=== PATIENT | female | born 1945 | race Caucasian/White ===

== ENCOUNTER 2018-10-10 14:43 | Outpatient (REF) | payer MEDICARE, SELFPAY ==
[2018-10-10 19:05] LABS: ALT 109 U/L (12-78); AST 114 U/L (15-37); Albumin 3.5 g/dL (3.4-5.0); Alkaline Phosphatase 178 U/L (46-116); Bilirubin, Direct 0.11 mg/dL (0.00-0.20); Bilirubin, Total 0.3 mg/dL (0.2-1.0); Total Protein 8.7 g/dL (6.4-8.2)
== END 2018-10-10 15:03 ==
LOC: NCHCN 14:43
PROVIDERS: PCP Internal Medicine; Visit Provider Nurse Practitioner Family
DX: K74.3 Primary biliary cirrhosis (principal)
CPT/HCPCS: 80076

== ENCOUNTER 2020-02-14 12:48 | Outpatient (REF) | payer MEDICARE, SELFPAY ==
[2020-02-14 21:52] LABS: ALT 91 U/L (14-59); AST 68 U/L (15-37); Albumin 3.7 g/dL (3.4-5.0); Alkaline Phosphatase 155 U/L (46-116); Anion Gap 9.4 mmol/L (3-11); BUN 21 mg/dL (7-18); Bilirubin, Direct 0.11 mg/dL (0.00-0.20); Bilirubin, Total 0.4 mg/dL (0.2-1.0); CO2 25.6 mmol/L (21.0-32.0); CREATININE 0.96 mg/dL (0.55-1.02); Calcium 9.5 mg/dL (8.5-10.1); Calculated LDL 149 mg/dL (<100); Chloride 106 mmol/L (98-107); Cholesterol 209 mg/dL (<200); Estimated GFR 56.81 (mL/min/1.73m2); Glucose 89 mg/dL (74-106); HDL Cholesterol 50 mg/dL (40-60); Sodium 141 mmol/L (136-145); Total Protein 8.6 g/dL (6.4-8.2); Triglyceride 54 mg/dL (<150)
== END 2020-02-14 13:08 ==
LOC: NCHCN 12:48
PROVIDERS: PCP Internal Medicine; Visit Provider Nurse Practitioner Family
DX: I10 Essential (primary) hypertension (principal); E78.5 Hyperlipidemia, unspecified; E03.9 Hypothyroidism, unspecified
CPT/HCPCS: 80048; 80061; 80076; 84443

== ENCOUNTER 2020-12-18 16:11 | Outpatient (REF) | payer MEDICARE, SELFPAY ==
[2020-12-18 20:24] LABS: HCT 36.3 % (36.0-46.0); HGB 12.2 g/dL (11.2-15.7); MCH 30.7 pg (27.0-33.0); MCHC 33.6 % (32.0-36.0); MCV 91.2 fL (80-95); Platelet Count 162 10^3/uL (130-400); RBC 3.98 10^6/uL (3.93-5.22); RDW 14.6 % (11.7-14.6); RDW-SD 49.1 fL
[2020-12-18 20:35] LABS: ALT 52 U/L (14-59); AST 59 U/L (15-37); Albumin 3.6 g/dL (3.4-5.0); Alkaline Phosphatase 144 U/L (46-116); BUN 17 mg/dL (7-18); Bilirubin, Total 0.4 mg/dL (0.2-1.0); C-Reactive Protein 0.64 mg/dL (0.0-0.3); Calcium 9.2 mg/dL (8.5-10.1); Chloride 107 mmol/L (98-107); Estimated GFR 54.05 (mL/min/1.73m2); Glucose 78 mg/dL (74-106); Potassium 4.2 mmol/L (3.5-5.1); Sodium 143 mmol/L (136-145); Total Protein 8.7 g/dL (6.4-8.2)
== END 2020-12-18 16:12 | disposition home or self-care (01) ==
LOC: NCHCN 16:11
PROVIDERS: PCP Internal Medicine; Visit Provider Internal Medicine
DX: D05.12 Intraductal carcinoma in situ of left breast (principal); M48.061 Spinal stenosis, lumbar region without neurogenic claudication
CPT/HCPCS: 80053; 85027; 86140

== ENCOUNTER 2021-06-25 11:52 | Outpatient (CLI) | payer MEDICARE, SELFPAY ==
--- NOTE | 2021-06-25 06:00 | DI.RAD_ITS ---
Exam(s) XR PAIN CLINIC LUMBAR SP 2V EXAM: XR PAIN CLINIC LUMBAR SP 2V CLINICAL HISTORY: DX: Lumbar Radiculopathy TECHNIQUE: 2D and realtime digital imaging was performed. Radiologist not present. CONTRAST MATERIAL: None. COMPARISON: No exams were available for comparison FINDINGS: Fluoroscopy was provided for pain management therapy. Please refer to procedure report or details. Cumulative dose: Ka,r=14.2 mGy IMPRESSION: RADIATION DOSE DELIVERED:
[2021-06-25 12:42] VITALS: BP 138/92; PULSE 84; RESP 16; TEMP 36.9; O2SAT 100
--- NOTE | 2021-06-25 13:22 | PDOC.PAIN_ITS ---
Pain Clinic Procedure Note Procedure Note Procedure Note: Lumbar Epidural Steroid Injection Procedure Note COMMENTS: Pre-procedure pain VAS = 6/10. Dx: Lumbosacral radiculopathy Matilda Angela has been referred to the [facility] for lumbar epidural steroid injection. The patient was greeted by the nurse who verified patients name and . Patient was then taken to the fluoroscopy suite. The patient was interviewed and the medial record reviewed. There were no m edical, pharmacologic, radiographic, or other structural contraindications to attempting fluoroscopically guided lumbar epidural steroid injection. Risks and expected side effects as well as potential benefits of the procedure were reviewed and voiced concerns expressed. The patient consent form was signed and witnessed. Standard patient time-out procedure was performed. The patient was placed in the prone position on the fluoroscopy table and automated blood pressure cuff and pulse oximeter applied. The skin entry point for entering/approaching the epidural space at L5-S1 and marked. Following thorough chlorhexadine preparation of the skin and draping and 1% lidocaine infiltration of the skin entry point and subcutaneous tissues, a 18 gauge Touhy needle was placed under fluoroscopic guidance and with loss of resistance technique into the epidural space. Needle tip placement and depth were aided and confirmed by fluoroscopy. There was no paresthesia or return of blood or CSF through the needle. 1 cc's of Omnipaque 240 was injected with clear epidural spread confirmed with fluoroscopy. 80mg depomedrol was injected. This was flushed with 2 cc of 1% Lidocaine and the needle was removed without difficulty. There was not any unusual discomfort expressed by Matilda Angela. Patient's vital signs were stable throughout the procedure and were as recorded in nursing records. Follow up plans and appointments were discussed with patient. Post procedure instruction was given as documented in nursing records and having met discharge criteria and was discharged from the [facility]. COMMENTS: If this procedure is helpful, it can be completed up to 3 times per 12 months. She states that she has had a frontal headache and some poor balance for about one month. She has not discussed this with her PCP. I asked her to follow up with her PCP about this issue. She understands and agrees. Post-procedure pain VAS = 1/10. Andrew Mackey DO, MPH [facility]-Pain Management
[2021-06-25 13:30] VITALS: BP 162/112; PULSE 88; RESP 15; O2SAT 100
[2021-06-25 13:40] VITALS: BP 158/110; PULSE 71
[2021-06-25 13:50] VITALS: BP 156/110
[2021-06-25] MEDS: Omnipaque 240 MG/ML 50 ML BTL IJ (13:50)
[2021-06-25] MEDS: methylPREDNISolone ACETATE 80 MG/ML VIAL IJ (13:50)
[2021-06-25 14:00] VITALS: BP 170/98
== END 2021-06-25 11:53 | disposition home or self-care (01) ==
PROVIDERS: PCP Internal Medicine; Visit Provider Preventive Medicine Occupational Medicine
DX: M54.17 Radiculopathy, lumbosacral region (principal)
CPT/HCPCS: 62323; 72100; J1040; Q9967

== ENCOUNTER 2021-06-25 17:03 | Outpatient (REF) | payer MEDICARE, SELFPAY ==
[2021-06-25 21:02] LABS: Abs Immature Grans 0.01 10^3/uL (0.0-0.06); Absolute Basophil Count 0.05 10^3/uL (0.0-0.2); Absolute Eosinophil Count 0.14 10^3/uL (0.0-0.7); Absolute Monocyte Count 0.54 10^3/uL (0.1-0.8); Basophils % 1.2; Eosinophils % 3.5; HCT 39.3 % (36.0-46.0); Immature Grans % 0.2; Lymphocytes % 52.2; MCH 30.4 pg (27.0-33.0); MCHC 33.1 % (32.0-36.0); Monocytes % 13.4; Neutrophils % 29.5; Nucleated RBC 0 %; Platelet Count 137 10^3/uL (130-400); RBC 4.27 10^6/uL (3.93-5.22); RDW 14.2 % (11.7-14.6); RDW-SD 47.8 fL; WBC 4.02 10^3/uL (4.4-10.8)
[2021-06-25 21:04] LABS: Absolute Neutrophil Count 1.19 10^3/uL (1.2-6.7)
[2021-06-25 21:27] LABS: ALT 51 U/L (14-59); AST 49 U/L (15-37); Albumin 3.5 g/dL (3.4-5.0); Alkaline Phosphatase 127 U/L (46-116); Anion Gap 5.6 mmol/L (3-11); BUN 18 mg/dL (7-18); Bilirubin, Total 0.4 mg/dL (0.2-1.0); CO2 30.4 mmol/L (21.0-32.0); CREATININE 0.9 mg/dL (0.55-1.02); Calcium 9.4 mg/dL (8.5-10.1); Chloride 104 mmol/L (98-107); Glucose 138 mg/dL (74-106); Sodium 140 mmol/L (136-145); TSH 1.98 uIU/mL (0.36-3.74); Total Protein 8.6 g/dL (6.4-8.2)
== END 2021-06-25 17:04 | disposition home or self-care (01) ==
LOC: NCHCN 17:03
PROVIDERS: PCP Internal Medicine; Visit Provider Nurse Practitioner Family
DX: I10 Essential (primary) hypertension (principal)
CPT/HCPCS: 80053; 84443; 85025

== ENCOUNTER 2021-07-10 18:30 | Outpatient (REF) | payer MEDICARE, SELFPAY ==
[2021-07-10 19:16] LABS: ESR 105 mm/hr (0-30)
[2021-07-10 19:35] LABS: C-Reactive Protein 16.76 mg/dL (0.0-0.3); Magnesium 1.8 mg/dL (1.8-2.4); Potassium 3.4 mmol/L (3.5-5.1)
== END 2021-07-10 18:31 | disposition home or self-care (01) ==
LOC: NCHCN 18:30
PROVIDERS: PCP Internal Medicine; Visit Provider Internal Medicine
DX: I10 Essential (primary) hypertension (principal); R51.9 Headache, unspecified; M35.3 Polymyalgia rheumatica
CPT/HCPCS: 85652; 83735; 84132; 86140

== ENCOUNTER 2021-08-01 14:31 | Outpatient (REF) | payer MEDICARE, SELFPAY ==
[2021-08-01 19:30] LABS: ESR 32 mm/hr (0-30)
[2021-08-01 19:34] LABS: Potassium 3.7 mmol/L (3.5-5.1)
[2021-08-01 19:39] LABS: Hemoglobin A1C 5.4 % (<5.7)
== END 2021-08-01 14:32 | disposition home or self-care (01) ==
LOC: NCHCN 14:31
PROVIDERS: PCP Internal Medicine; Visit Provider Internal Medicine
DX: E87.6 Hypokalemia (principal); M35.3 Polymyalgia rheumatica; Z79.52 Long term (current) use of systemic steroids; E16.2 Hypoglycemia, unspecified
CPT/HCPCS: 85652; 83036; 84132

== ENCOUNTER 2021-10-23 15:22 | Outpatient (REF) | payer MEDICARE, SELFPAY ==
[2021-10-23 21:23] LABS: INR 1.1 (0.9-1.1); Prothrombin Time 11.2 sec (9.3-11.0)
[2021-10-23 21:27] LABS: HCT 39.5 % (36.0-46.0); MCH 30.3 pg (27.0-33.0); MCHC 32.9 % (32.0-36.0); MCV 92.1 fL (80-95); RBC 4.29 10^6/uL (3.93-5.22); RDW 13.3 % (11.7-14.6); RDW-SD 45.1 fL; WBC 7.43 10^3/uL (4.4-10.8)
[2021-10-23 21:29] LABS: ALT 31 U/L (14-59); AST 37 U/L (15-37); Albumin 3.3 g/dL (3.4-5.0); Alkaline Phosphatase 134 U/L (46-116); Anion Gap 10.2 mmol/L (3-11); BUN 20 mg/dL (7-18); Bilirubin, Total 0.3 mg/dL (0.2-1.0); CO2 28.8 mmol/L (21.0-32.0); Calcium 8.6 mg/dL (8.5-10.1); Chloride 105 mmol/L (98-107); Estimated GFR 54.05 (mL/min/1.73m2); Glucose 94 mg/dL (74-106); Sodium 144 mmol/L (136-145); Total Protein 7.3 g/dL (6.4-8.2); Troponin I < 50 ng/L (<or=60)
[2021-10-23 21:42] LABS: Potassium 2.7 mmol/L (3.5-5.1)
[2021-10-23 21:55] LABS: D-Dimer > 7500 ng/mlFEU (<500)
[2021-10-23 22:02] LABS: Platelet Count 32 10^3/uL (130-400)
== END 2021-10-23 15:23 | disposition home or self-care (01) ==
LOC: NCHCN 15:22
PROVIDERS: PCP Internal Medicine; Visit Provider Internal Medicine
DX: I10 Essential (primary) hypertension (principal); I80.212 Phlebitis and thrombophlebitis of left iliac vein
CPT/HCPCS: 80053; 85027; 84484; 85379; 85610

== ENCOUNTER 2021-11-17 00:08 | Outpatient (CLI) | payer MEDICARE, SELFPAY ==
--- NOTE | 2021-11-17 11:00 | DI.NM_ITS ---
APPROVED REPORT Exam: Pharmacologic - paired w/ low level exercise Patient Location: Out-Patient Room/Bed: Stress Nurse: Raven Silvestre RN Ordering Provider:ANNA THOMAS MD Contact Number: [phone] BMI: 28.31 Baseline Rhythm: Sinus Rhythm, RBBB Indications: Dyspnea Medical History Medical History: HTN, HLD, Fibromyalgia, hypothyroid, arteriosclerotic vasc. disease, breast CA Cardiac Medications: ASA, HCTZ, Levothyroxine, losartan, metoprolol succinate ER, Nexletol, Nitro SL, Timolol eye drops, Xarelto, Zetia Allergies: Enzo Inhibitors, Simvastatin, Lisinopril Cardiac Risk Factors: CVD, HTN, HLD Previous Cardiac Procedures: Cardiac cath w/ MEMO x5 (2018), Cat w/ MEMO (2005), Cath w/ MEMO x1 (2019) Pretest Chest Pain Characteristics: No chest pain Exercise History: Sedentary Physical Disabilities: None Lung Sounds: Clear/Diminished Heart Sounds: Regular Stress Test Details Test: Pharmacologic stress was paired with low level exercise. Reason for pharmacologic stress test: changed from exercise stress test due to inability to reach t arget heart rate. Nuclear Acquisition: Rest Tc-99m/Stress Tc-99m 1 day Rest Isotope: Tc-99m Sestamibi. Dose: 10.0 Date: 11/17/2021 Injection Time: 11:00 Stress Isotope: Tc-99m Sestamibi. Dose: 30.0 Date: 11/17/2021 Injection Time: 13:28 HR Resting HR Supine: 65 bpm Max Heart Rate (APMHR): 145 bpm Resting HR Standin bpm Target HR (85% APMHR): 123 bpm Max HR Achieved: 100 bpm % of APMHR: 68 Recovery HR: 84 bpm Comment: Metoprolol Succinate not held prior to stress test BP Resting BP Supine: 108/86 mmHg Resting BP Standin/80 mmHg Max BP: 118/82 mmHg Recovery BP: 116/76 mmHg ECG Resting ECG: Sinus Rhythm, RBBB Ectopy: None Comment: Inverted T waves in aVL Stress ECG: Sinus Rhythm, RBBB ST Change: No significant ST segment changes noted Arrhythmia: 3 beat run SVT Recovery ECG: Sinus Rhythm, RBBB Recovery ST Change: No significant ST segment changes noted Recovery Arrhythmia: None Clinical Reason for Termination: Fatigue Stress Symptoms: General Fatigue Exercise duration: 2 min59 sec Highest Stage Reached: Stage 1: 1.7 mph at 10% grade. Exercise capacity: 4.64 METs Angina Score: None Chavarria Treadmill Score: 5.6 Rate Pressure Product: [id number] Stress ECG Conclusion 1. Resting electrocardiogram showed right bundle branch block 2. Patient underwent testing using low-level exercise coupled with pharmacologic stress with regadeno son 3. Peak heart rate achieved was 68% of predicted for age 4. Electrocardiographic portion of the test was nondiagnostic due to inadequate heart rate 5. See MPI report Chavarria Treadmill Score is 5.6 which is Low risk. Stress Test Summary STAGE Time (mins) Speed (mph) Grade (%) HR BP SYMPTOMS METS Supine 65 108/86 Standing 65 114/80 1 3 1.7 10 82 118/82 4.6 1 min post Lexiscan injection 78 112/76 shortness of breath 3 min post Lexiscan injection 90 104/72 6 min post Lexiscan injection 83 116/76 symptoms resolved MPI Conclusion Myocardial perfusion is normal. There is no evidence of ischemia or prior infarction EF 78%, normal wall motion
[2021-11-17] MEDS: Regadenoson 0.4 MG/5 ML SYR IVP (14:00)
== END 2021-11-17 00:28 ==
LOC: DI 00:08
PROVIDERS: PCP Internal Medicine; Visit Provider Internal Medicine Interventional Cardiology
DX: R06.09 Other forms of dyspnea (principal)
CPT/HCPCS: 78452; 93016; 93018; 93017; J2785

== ENCOUNTER 2022-02-05 12:30 | Outpatient (CLI) | payer MEDICARE, SELFPAY ==
[2022-02-05 09:52] LABS: Abs Immature Grans 0.19 10^3/uL (0.0-0.06); Absolute Basophil Count 0.04 10^3/uL (0.0-0.2); Absolute Lymphocyte Count 0.57 10^3/uL (1.2-3.4); Absolute Monocyte Count 0.79 10^3/uL (0.1-0.8); Absolute Neutrophil Count 18.09 10^3/uL (1.2-6.7); Basophils % 0.2; HCT 29.4 % (36.0-46.0); HGB 10.1 g/dL (11.2-15.7); Lymphocytes % 2.9; MCH 30.5 pg (27.0-33.0); MCHC 34.4 % (32.0-36.0); MCV 89 fL (80-95); Neutrophils % 91.9; Platelet Count 126 10^3/uL (130-400); RBC 3.31 10^6/uL (3.93-5.22); RDW 15.5 % (11.7-14.6); RDW-SD 50.6 fL; WBC 19.68 10^3/uL (4.4-10.8)
[2022-02-05 09:59] LABS: ALT 44 U/L (14-59); AST 24 U/L (15-37); Alkaline Phosphatase 130 U/L (46-116); Anion Gap 13.2 mmol/L (3-11); BUN 50 mg/dL (7-18); Bilirubin, Total 0.5 mg/dL (0.2-1.0); CO2 23.8 mmol/L (21.0-32.0); CREATININE 1.9 mg/dL (0.55-1.02); Calcium 9.3 mg/dL (8.5-10.1); Chloride 102 mmol/L (98-107); Glucose 167 mg/dL (74-106); Potassium 3.5 mmol/L (3.5-5.1); Sodium 139 mmol/L (136-145); Total Protein 7.4 g/dL (6.4-8.2)
== END 2022-02-05 12:31 | disposition home or self-care (01) ==
LOC: LBO 12:32
PROVIDERS: PCP Internal Medicine; Visit Provider Internal Medicine Hematology & Oncology
DX: D69.3 Immune thrombocytopenic purpura (principal)
CPT/HCPCS: 36415; 80053; 85025

== ENCOUNTER 2022-03-19 10:29 | Outpatient (CLI) | payer MEDICARE, SELFPAY ==
[2022-03-19 09:19] LABS: Abs Immature Grans 0.02 10^3/uL (0.0-0.06); Absolute Basophil Count 0.07 10^3/uL (0.0-0.2); Absolute Eosinophil Count 0.25 10^3/uL (0.0-0.7); Absolute Lymphocyte Count 1.78 10^3/uL (1.2-3.4); Absolute Monocyte Count 1.71 10^3/uL (0.1-0.8); Eosinophils % 3.6; HCT 27.8 % (36.0-46.0); HGB 8.9 g/dL (11.2-15.7); Immature Grans % 0.3; Lymphocytes % 25.7; MCH 28.9 pg (27.0-33.0); MCV 90 fL (80-95); MPV 13.6 fL (8.0-11.0); Monocytes % 24.7; Neutrophils % 44.7; Platelet Count 104 10^3/uL (130-400); RBC 3.08 10^6/uL (3.93-5.22); RDW 16.6 % (11.7-14.6); RDW-SD 54.7 fL; WBC 6.93 10^3/uL (4.4-10.8)
[2022-03-19 09:29] LABS: Diff Comment Diff Reviewed; RBC Morphology Normal
[2022-03-19 09:38] LABS: ALT 36 U/L (14-59); AST 58 U/L (15-37); Albumin 2.7 g/dL (3.4-5.0); Alkaline Phosphatase 120 U/L (46-116); Anion Gap 8.7 mmol/L (3-11); BUN 25 mg/dL (7-18); Bilirubin, Total 0.4 mg/dL (0.2-1.0); CO2 27.3 mmol/L (21.0-32.0); CREATININE 1.3 mg/dL (0.55-1.02); Calcium 9.3 mg/dL (8.5-10.1); Chloride 108 mmol/L (98-107); Estimated GFR 42.62 (mL/min/1.73m2); Glucose 89 mg/dL (74-106); Potassium 3.3 mmol/L (3.5-5.1); Sodium 144 mmol/L (136-145); Total Protein 6.2 g/dL (6.4-8.2)
== END 2022-03-19 10:30 | disposition home or self-care (01) ==
LOC: LBO 10:31
PROVIDERS: PCP Internal Medicine; Visit Provider Internal Medicine Hematology & Oncology
DX: D69.3 Immune thrombocytopenic purpura (principal)
CPT/HCPCS: 36415; 80053; 85025

== ENCOUNTER 2022-04-30 15:54 | Outpatient (REF) | payer MEDICARE, SELFPAY | END 2022-04-30 15:55 | disposition home or self-care (01) | LOC: NCHCN 15:54 | PROVIDERS: PCP Internal Medicine; Visit Provider Internal Medicine | DX: R30.0 Dysuria (principal) | CPT/HCPCS: 87086 ==

== ENCOUNTER 2022-05-27 17:25 | Outpatient (REF) | payer MEDICARE, SELFPAY | END 2022-05-27 17:26 | disposition home or self-care (01) | LOC: NCHCN 17:25 | PROVIDERS: PCP Internal Medicine; Visit Provider Physician Assistant | DX: R30.0 Dysuria (principal) | CPT/HCPCS: 87077; 87086; 87186 ==

== ENCOUNTER 2022-07-28 11:17 | Outpatient (REF) | payer MEDICARE, SELFPAY ==
[2022-07-28 19:33] LABS: Abs Immature Grans 0.03 10^3/uL (0.0-0.06); Absolute Basophil Count 0.01 10^3/uL (0.0-0.2); Absolute Eosinophil Count 0.23 10^3/uL (0.0-0.7); Absolute Lymphocyte Count 0.72 10^3/uL (1.2-3.4); Absolute Monocyte Count 0.49 10^3/uL (0.1-0.8); Basophils % 0.2; Eosinophils % 4.9; HCT 33.7 % (36.0-46.0); HGB 10.8 g/dL (11.2-15.7); Immature Grans % 0.6; Lymphocytes % 15.4; MCH 31.5 pg (27.0-33.0); MCV 98 fL (80-95); Monocytes % 10.5; Neutrophils % 68.4; Nucleated RBC 0.4 % (0.0-0.3); RBC 3.43 10^6/uL (3.93-5.22); RDW 18.5 % (11.7-14.6); RDW-SD 65.8 fL; WBC 4.68 10^3/uL (4.4-10.8)
[2022-07-28 19:35] LABS: Iron 80 ug/dL (50-170); Total Iron Binding Capacity 244 ug/dL (250-450); Transferrin Sat 33 % (15-50)
[2022-07-28 19:55] LABS: Platelet Count 95 10^3/uL (130-400)
[2022-07-28 19:56] LABS: Diff Comment PLT Morph Reviewed; Howell-Jolly Bodies Present
== END 2022-07-28 11:18 | disposition home or self-care (01) ==
LOC: NCHCN 11:17
PROVIDERS: PCP Internal Medicine; Visit Provider Internal Medicine
DX: K92.1 Melena (principal); D64.9 Anemia, unspecified
CPT/HCPCS: 83540; 83550; 85025

== ENCOUNTER 2022-08-03 13:05 | Outpatient (REF) | payer MEDICARE, SELFPAY ==
[2022-08-03 19:17] LABS: Abs Immature Grans 0.01 10^3/uL (0.0-0.06); Absolute Basophil Count 0.04 10^3/uL (0.0-0.2); Absolute Eosinophil Count 0.11 10^3/uL (0.0-0.7); Absolute Lymphocyte Count 1.06 10^3/uL (1.2-3.4); Absolute Monocyte Count 0.53 10^3/uL (0.1-0.8); Absolute Neutrophil Count 1.04 10^3/uL (1.2-6.7); Basophils % 1.4; Eosinophils % 3.9; HGB 10.7 g/dL (11.2-15.7); Immature Grans % 0.4; MCH 31.8 pg (27.0-33.0); MCHC 32.4 % (32.0-36.0); MCV 98 fL (80-95); Neutrophils % 37.3; Nucleated RBC 0.7 % (0.0-0.3); RBC 3.36 10^6/uL (3.93-5.22); RDW 18.5 % (11.7-14.6); RDW-SD 66.1 fL; WBC 2.79 10^3/uL (4.4-10.8)
[2022-08-03 19:53] LABS: Platelet Count 42 10^3/uL (130-400)
== END 2022-08-03 13:06 | disposition home or self-care (01) ==
LOC: NCHCN 13:05
PROVIDERS: PCP Internal Medicine; Visit Provider Internal Medicine
DX: D64.9 Anemia, unspecified (principal)
CPT/HCPCS: 85025

== ENCOUNTER 2022-08-11 16:00 | Outpatient (REF) | payer MEDICARE, SELFPAY ==
[2022-08-11 18:39] LABS: Abs Immature Grans 0.01 10^3/uL (0.0-0.06); HCT 34.3 % (36.0-46.0); HGB 10.9 g/dL (11.2-15.7); MCH 31.7 pg (27.0-33.0); MCHC 31.8 % (32.0-36.0); MCV 100 fL (80-95); RBC 3.44 10^6/uL (3.93-5.22); RDW 17.4 % (11.7-14.6); RDW-SD 64.1 fL; WBC 5.29 10^3/uL (4.4-10.8)
[2022-08-11 19:16] LABS: Absolute Lymphocyte Count 1.64 10^3/uL (1.2-3.4); Absolute Monocyte Count 0.63 10^3/uL (0.1-0.8); Absolute Neutrophil Count 3.02 10^3/uL (1.2-6.7); Bands % 2; Diff Comment Manual Differential; Platelet Count 61 10^3/uL (130-400); RBC Morphology Normal
== END 2022-08-11 16:01 | disposition home or self-care (01) ==
LOC: NCHCN 16:00
PROVIDERS: PCP Internal Medicine; Visit Provider Internal Medicine
DX: D64.9 Anemia, unspecified (principal)
CPT/HCPCS: 85025

== ENCOUNTER 2022-08-17 16:12 | Outpatient (REF) | payer MEDICARE, SELFPAY ==
[2022-08-17 19:12] LABS: Abs Immature Grans 0.01 10^3/uL (0.0-0.06); Absolute Basophil Count 0.06 10^3/uL (0.0-0.2); Absolute Monocyte Count 0.52 10^3/uL (0.1-0.8); Absolute Neutrophil Count 1.23 10^3/uL (1.2-6.7); Basophils % 1.9; Eosinophils % 3.1; HCT 36.1 % (36.0-46.0); HGB 11.3 g/dL (11.2-15.7); Immature Grans % 0.3; Lymphocytes % 40.4; MCH 31.4 pg (27.0-33.0); MCHC 31.3 % (32.0-36.0); MCV 100 fL (80-95); Monocytes % 16.1; Neutrophils % 38.2; Platelet Count 104 10^3/uL (130-400); RDW 16.7 % (11.7-14.6); RDW-SD 61.4 fL; WBC 3.22 10^3/uL (4.4-10.8)
[2022-08-17 19:38] LABS: Diff Comment PLT Morph Reviewed; RBC Morphology Normal
[2022-08-17 19:43] LABS: TSH 21.32 uIU/mL (0.36-3.74)
== END 2022-08-17 16:13 | disposition home or self-care (01) ==
LOC: NCHCN 16:12
PROVIDERS: PCP Internal Medicine; Visit Provider Internal Medicine
DX: D64.9 Anemia, unspecified (principal); E03.9 Hypothyroidism, unspecified
CPT/HCPCS: 84443; 85025

== ENCOUNTER 2022-08-24 20:22 | Outpatient (REF) | payer MEDICARE, SELFPAY ==
[2022-08-24 21:48] LABS: Abs Immature Grans 0.01 10^3/uL (0.0-0.06); Absolute Basophil Count 0.07 10^3/uL (0.0-0.2); Absolute Eosinophil Count 0.08 10^3/uL (0.0-0.7); Absolute Lymphocyte Count 1.29 10^3/uL (1.2-3.4); Absolute Monocyte Count 0.68 10^3/uL (0.1-0.8); Absolute Neutrophil Count 2.07 10^3/uL (1.2-6.7); Basophils % 1.7; Eosinophils % 1.9; HCT 37.9 % (36.0-46.0); HGB 11.8 g/dL (11.2-15.7); Immature Grans % 0.2; Lymphocytes % 30.7; MCH 31.1 pg (27.0-33.0); MCHC 31.1 % (32.0-36.0); MCV 100 fL (80-95); Monocytes % 16.2; Neutrophils % 49.3; Platelet Count 121 10^3/uL (130-400); RBC 3.79 10^6/uL (3.93-5.22); RDW 16.1 % (11.7-14.6)
== END 2022-08-24 20:23 | disposition home or self-care (01) ==
LOC: NCHCN 20:22
PROVIDERS: PCP Internal Medicine; Visit Provider Internal Medicine
DX: D69.3 Immune thrombocytopenic purpura (principal); D64.9 Anemia, unspecified
CPT/HCPCS: 85025

== ENCOUNTER 2022-09-07 18:02 | Outpatient (REF) | payer MEDICARE, SELFPAY ==
[2022-09-07 18:56] LABS: Abs Immature Grans 0.01 10^3/uL (0.0-0.06); HCT 36.1 % (36.0-46.0); HGB 11.8 g/dL (11.2-15.7); MCH 31.5 pg (27.0-33.0); MCHC 32.7 % (32.0-36.0); MCV 96 fL (80-95); RBC 3.75 10^6/uL (3.93-5.22); RDW 14.6 % (11.7-14.6); RDW-SD 51.3 fL
[2022-09-07 19:09] LABS: ALT 28 U/L (14-59); AST 44 U/L (15-37); Albumin 3.2 g/dL (3.4-5.0); Alkaline Phosphatase 130 U/L (46-116); Anion Gap 6.6 mmol/L (3-11); BUN 18 mg/dL (7-18); Bilirubin, Total 0.2 mg/dL (0.2-1.0); CO2 29.4 mmol/L (21.0-32.0); CREATININE 0.9 mg/dL (0.55-1.02); Calcium 9.6 mg/dL (8.5-10.1); Chloride 108 mmol/L (98-107); Estimated GFR 66.26 (mL/min/1.73m2); Glucose 126 mg/dL (74-106); Sodium 144 mmol/L (136-145); Total Protein 7.1 g/dL (6.4-8.2)
[2022-09-07 19:19] LABS: Absolute Basophil Count 0.05 10^3/uL (0.0-0.2); Absolute Lymphocyte Count 1.72 10^3/uL (1.2-3.4); Absolute Monocyte Count 0.54 10^3/uL (0.1-0.8); Diff Comment Manual Differential; RBC Morphology Normal
[2022-09-07 19:20] LABS: Platelet Count 84 10^3/uL (130-400)
== END 2022-09-07 18:03 | disposition home or self-care (01) ==
LOC: NCHCN 18:02
PROVIDERS: PCP Internal Medicine; Visit Provider Internal Medicine
DX: C50.912 Malignant neoplasm of unspecified site of left female breast (principal); K92.2 Gastrointestinal hemorrhage, unspecified; D64.9 Anemia, unspecified
CPT/HCPCS: 80053; 85025

== ENCOUNTER 2022-09-22 11:42 | Outpatient (REF) | payer MEDICARE, SELFPAY ==
[2022-09-22 19:31] LABS: HCT 39.2 % (36.0-46.0); HGB 12.9 g/dL (11.2-15.7); MCH 32.8 pg (27.0-33.0); MCHC 32.9 % (32.0-36.0); MCV 100 fL (80-95); MPV 15.6 fL (8.0-11.0); Platelet Count 131 10^3/uL (130-400); RBC 3.93 10^6/uL (3.93-5.22); RDW 14.8 % (11.7-14.6); RDW-SD 53.8 fL; WBC 4.03 10^3/uL (4.4-10.8)
[2022-09-22 19:37] LABS: ESR 29 mm/hr (0-30)
== END 2022-09-22 11:43 | disposition home or self-care (01) ==
LOC: LBN 11:42
PROVIDERS: PCP Internal Medicine; Visit Provider Internal Medicine
DX: D69.3 Immune thrombocytopenic purpura (principal); E03.9 Hypothyroidism, unspecified; M79.18 Myalgia, other site
CPT/HCPCS: 85027; 85652; 83540; 83550; 84443

== ENCOUNTER 2022-10-05 15:11 | Outpatient (REF) | payer MEDICARE, SELFPAY ==
[2022-10-05 20:06] LABS: Iron 92 ug/dL (50-170); Total Iron Binding Capacity 321 ug/dL (250-450); Transferrin Sat 29 % (15-50)
[2022-10-05 20:17] LABS: TSH 43.44 uIU/mL (0.36-3.74)
[2022-10-05 20:19] LABS: Abs Immature Grans 0.01 10^3/uL (0.0-0.06); Absolute Basophil Count 0.05 10^3/uL (0.0-0.2); Absolute Eosinophil Count 0.16 10^3/uL (0.0-0.7); Absolute Lymphocyte Count 1.39 10^3/uL (1.2-3.4); Absolute Monocyte Count 1.02 10^3/uL (0.1-0.8); Absolute Neutrophil Count 3.06 10^3/uL (1.2-6.7); Basophils % 0.9; Eosinophils % 2.8; HCT 40.3 % (36.0-46.0); Immature Grans % 0.2; Lymphocytes % 24.4; MCH 30.7 pg (27.0-33.0); MCHC 32.3 % (32.0-36.0); MCV 95 fL (80-95); Monocytes % 17.9; Neutrophils % 53.8; Platelet Count 121 10^3/uL (130-400); RBC 4.24 10^6/uL (3.93-5.22); RDW 14.7 % (11.7-14.6); RDW-SD 51.5 fL; WBC 5.69 10^3/uL (4.4-10.8)
== END 2022-10-05 15:12 | disposition home or self-care (01) ==
LOC: NCHCN 15:11
PROVIDERS: PCP Internal Medicine; Visit Provider Internal Medicine
DX: E03.9 Hypothyroidism, unspecified (principal); D64.9 Anemia, unspecified; K92.2 Gastrointestinal hemorrhage, unspecified; E78.5 Hyperlipidemia, unspecified; D69.3 Immune thrombocytopenic purpura
CPT/HCPCS: 85027; 83540; 83550; 84443; 85025

== ENCOUNTER 2022-10-26 19:14 | Outpatient (REF) | payer MEDICARE, SELFPAY ==
[2022-10-26 19:30] LABS: Abs Immature Grans 0.02 10^3/uL (0.0-0.06); Absolute Basophil Count 0.06 10^3/uL (0.0-0.2); Absolute Eosinophil Count 0.15 10^3/uL (0.0-0.7); Absolute Lymphocyte Count 1.17 10^3/uL (1.2-3.4); Absolute Neutrophil Count 2.39 10^3/uL (1.2-6.7); Basophils % 1.3; Eosinophils % 3.3; HGB 13.8 g/dL (11.2-15.7); Immature Grans % 0.4; Lymphocytes % 26.1; MCH 32.2 pg (27.0-33.0); MCHC 34.5 % (32.0-36.0); MCV 93 fL (80-95); Monocytes % 15.6; Neutrophils % 53.3; RBC 4.29 10^6/uL (3.93-5.22); RDW 15.1 % (11.7-14.6); RDW-SD 51.6 fL; WBC 4.49 10^3/uL (4.4-10.8)
[2022-10-26 20:11] LABS: ALT 30 U/L (14-59); AST 40 U/L (15-37); Albumin 3.4 g/dL (3.4-5.0); Alkaline Phosphatase 121 U/L (46-116); BUN 14 mg/dL (7-18); Bilirubin, Total 0.4 mg/dL (0.2-1.0); Calcium 9.3 mg/dL (8.5-10.1); Chloride 109 mmol/L (98-107); Estimated GFR 58.39 (mL/min/1.73m2); Glucose 89 mg/dL (74-106); Potassium 4.3 mmol/L (3.5-5.1); Sodium 144 mmol/L (136-145); Total Protein 7.1 g/dL (6.4-8.2)
[2022-10-26 20:23] LABS: Platelet Count 211 10^3/uL (130-400)
== END 2022-10-26 19:15 | disposition home or self-care (01) ==
LOC: NCHCN 19:14
PROVIDERS: PCP Internal Medicine; Visit Provider Internal Medicine
DX: D64.9 Anemia, unspecified (principal); E87.6 Hypokalemia
CPT/HCPCS: 80053; 85025

== ENCOUNTER 2022-11-23 16:05 | Outpatient (REF) | payer MEDICARE, SELFPAY ==
[2022-11-23 20:16] LABS: ALT 26 U/L (14-59); AST 40 U/L (15-37); Albumin 3.1 g/dL (3.4-5.0); Alkaline Phosphatase 137 U/L (46-116); Anion Gap 5.9 mmol/L (3-11); BUN 13 mg/dL (7-18); Bilirubin, Total 0.4 mg/dL (0.2-1.0); CO2 29.1 mmol/L (21.0-32.0); Calcium 9.3 mg/dL (8.5-10.1); Chloride 108 mmol/L (98-107); Estimated GFR 58.39 (mL/min/1.73m2); Glucose 77 mg/dL (74-106); Sodium 143 mmol/L (136-145); TSH 2.62 uIU/mL (0.36-3.74); Total Protein 6.9 g/dL (6.4-8.2)
== END 2022-11-23 16:06 | disposition home or self-care (01) ==
LOC: NCHCN 16:05
PROVIDERS: PCP Internal Medicine; Visit Provider Internal Medicine
DX: I10 Essential (primary) hypertension (principal); E03.9 Hypothyroidism, unspecified; D64.9 Anemia, unspecified
CPT/HCPCS: 80053; 84443; 85025

== ENCOUNTER 2022-12-28 14:48 | Outpatient (REF) | payer MEDICARE, SELFPAY | END 2022-12-28 14:49 | disposition home or self-care (01) | LOC: NCHCN 14:48 | PROVIDERS: PCP Internal Medicine; Visit Provider Internal Medicine | DX: R30.0 Dysuria (principal) | CPT/HCPCS: 87077; 87086; 87186 ==

== ENCOUNTER 2023-01-04 14:34 | Outpatient (REF) | payer MEDICARE, SELFPAY ==
[2023-01-04 19:22] LABS: Abs Immature Grans 0.01 10^3/uL (0.0-0.06); Absolute Basophil Count 0.08 10^3/uL (0.0-0.2); Absolute Eosinophil Count 0.15 10^3/uL (0.0-0.7); Absolute Lymphocyte Count 1.29 10^3/uL (1.2-3.4); Absolute Monocyte Count 1.07 10^3/uL (0.1-0.8); Absolute Neutrophil Count 2.93 10^3/uL (1.2-6.7); Basophils % 1.4; Eosinophils % 2.7; HCT 37.1 % (36.0-46.0); HGB 12.3 g/dL (11.2-15.7); Immature Grans % 0.2; Lymphocytes % 23.3; MCH 31.1 pg (27.0-33.0); MCHC 33.2 % (32.0-36.0); MCV 94 fL (80-95); Monocytes % 19.3; Neutrophils % 53.1; Platelet Count 271 10^3/uL (130-400); RBC 3.95 10^6/uL (3.93-5.22); RDW 15.1 % (11.7-14.6); RDW-SD 52.3 fL; WBC 5.53 10^3/uL (4.4-10.8)
[2023-01-04 19:39] LABS: Diff Comment PLT Morph Reviewed; RBC Morphology Normal
[2023-01-04 19:42] LABS: ALT 21 U/L (14-59); AST 39 U/L (15-37); Albumin 3.3 g/dL (3.4-5.0); Alkaline Phosphatase 144 U/L (46-116); Anion Gap 9.1 mmol/L (3-11); BUN 16 mg/dL (7-18); Bilirubin, Total 0.5 mg/dL (0.2-1.0); CO2 26.9 mmol/L (21.0-32.0); CREATININE 0.9 mg/dL (0.55-1.02); Calcium 9.3 mg/dL (8.5-10.1); Chloride 108 mmol/L (98-107); Estimated GFR 65.84 (mL/min/1.73m2); Glucose 80 mg/dL (74-106); Potassium 4.6 mmol/L (3.5-5.1); Sodium 144 mmol/L (136-145)
== END 2023-01-04 14:35 | disposition home or self-care (01) ==
LOC: LBN 14:34
PROVIDERS: PCP Internal Medicine; Visit Provider Internal Medicine Hematology & Oncology
DX: D69.3 Immune thrombocytopenic purpura (principal)
CPT/HCPCS: 80053; 85025

== ENCOUNTER 2023-02-01 19:18 | Outpatient (REF) | payer MEDICARE, SELFPAY ==
[2023-02-01 20:13] LABS: Abs Immature Grans 0.01 10^3/uL (0.0-0.06); Absolute Basophil Count 0.06 10^3/uL (0.0-0.2); Absolute Eosinophil Count 0.16 10^3/uL (0.0-0.7); Absolute Lymphocyte Count 1.18 10^3/uL (1.2-3.4); Absolute Monocyte Count 0.58 10^3/uL (0.1-0.8); Absolute Neutrophil Count 2.55 10^3/uL (1.2-6.7); Basophils % 1.3; Eosinophils % 3.5; HCT 38.6 % (36.0-46.0); HGB 12.7 g/dL (11.2-15.7); Immature Grans % 0.2; MCH 30.5 pg (27.0-33.0); MCHC 32.9 % (32.0-36.0); MCV 93 fL (80-95); Monocytes % 12.8; Neutrophils % 56.2; Platelet Count 300 10^3/uL (130-400); RBC 4.16 10^6/uL (3.93-5.22); RDW 14.5 % (11.7-14.6); RDW-SD 49.7 fL; WBC 4.54 10^3/uL (4.4-10.8)
[2023-02-01 20:35] LABS: ALT 18 U/L (14-59); AST 36 U/L (15-37); Albumin 3.3 g/dL (3.4-5.0); Alkaline Phosphatase 139 U/L (46-116); Anion Gap 5.2 mmol/L (3-11); BUN 14 mg/dL (7-18); Bilirubin, Total 0.4 mg/dL (0.2-1.0); CO2 31.8 mmol/L (21.0-32.0); CREATININE 0.9 mg/dL (0.55-1.02); Calcium 9.3 mg/dL (8.5-10.1); Chloride 107 mmol/L (98-107); Estimated GFR 65.84 (mL/min/1.73m2); Glucose 106 mg/dL (74-106); Potassium 4.3 mmol/L (3.5-5.1); Sodium 144 mmol/L (136-145); Total Protein 6.9 g/dL (6.4-8.2)
== END 2023-02-01 19:19 | disposition home or self-care (01) ==
LOC: NCHCN 19:18
PROVIDERS: PCP Internal Medicine; Visit Provider Internal Medicine
DX: D69.3 Immune thrombocytopenic purpura (principal)
CPT/HCPCS: 80053; 85025

== ENCOUNTER 2023-02-15 12:27 | Outpatient (REF) | payer MEDICARE, SELFPAY ==
[2023-02-15 19:17] LABS: Absolute Basophil Count 0.05 10^3/uL (0.0-0.2); Absolute Eosinophil Count 0.13 10^3/uL (0.0-0.7); Absolute Monocyte Count 0.76 10^3/uL (0.1-0.8); Basophils % 1.1; Eosinophils % 2.9; HCT 37.6 % (36.0-46.0); HGB 12.4 g/dL (11.2-15.7); Lymphocytes % 29.3; MCH 30.6 pg (27.0-33.0); MCV 93 fL (80-95); Monocytes % 17.1; Neutrophils % 49.6; RBC 4.05 10^6/uL (3.93-5.22); RDW 14.6 % (11.7-14.6); RDW-SD 49.4 fL; WBC 4.44 10^3/uL (4.4-10.8)
[2023-02-15 19:46] LABS: Platelet Count 270 10^3/uL (130-400)
[2023-02-15 19:47] LABS: Diff Comment RBC Morph Reviewed; Poikilocytes 1+
== END 2023-02-15 12:28 | disposition home or self-care (01) ==
LOC: NCHCN 12:27
PROVIDERS: PCP Internal Medicine; Visit Provider Internal Medicine
DX: D69.59 Other secondary thrombocytopenia (principal)
CPT/HCPCS: 85025

== ENCOUNTER 2023-03-02 13:34 | Outpatient (REF) | payer MEDICARE, SELFPAY ==
[2023-03-02 18:40] LABS: HCT 38.1 % (36.0-46.0); HGB 12.9 g/dL (11.2-15.7); MCH 30.9 pg (27.0-33.0); MCHC 33.9 % (32.0-36.0); MCV 91 fL (80-95); RBC 4.17 10^6/uL (3.93-5.22); RDW 14.1 % (11.7-14.6); RDW-SD 47.7 fL; WBC 4.29 10^3/uL (4.4-10.8)
[2023-03-02 19:07] LABS: Absolute Neutrophil Count 1.42 10^3/uL (1.2-6.7); Diff Comment Manual Differential
[2023-03-02 19:08] LABS: Absolute Eosinophil Count 0.26 10^3/uL (0.0-0.7); Absolute Lymphocyte Count 1.46 10^3/uL (1.2-3.4); Absolute Monocyte Count 0.99 10^3/uL (0.1-0.8); Atypical Lymphocytes % 4
[2023-03-02 19:09] LABS: Absolute Basophil Count 0.17 10^3/uL (0.0-0.2)
[2023-03-02 19:12] LABS: Platelet Count 194 10^3/uL (130-400)
[2023-03-02 19:16] LABS: Howell-Jolly Bodies Present
[2023-03-02 19:34] LABS: ALT 18 U/L (14-59); AST 30 U/L (15-37); Albumin 3.4 g/dL (3.4-5.0); Alkaline Phosphatase 134 U/L (46-116); Anion Gap 6.9 mmol/L (3-11); BUN 15 mg/dL (7-18); Bilirubin, Total 0.5 mg/dL (0.2-1.0); CO2 29.1 mmol/L (21.0-32.0); CREATININE 0.8 mg/dL (0.55-1.02); Calcium 9.3 mg/dL (8.5-10.1); Chloride 104 mmol/L (98-107); Estimated GFR 75.84 (mL/min/1.73m2); Glucose 79 mg/dL (74-106); Sodium 140 mmol/L (136-145)
== END 2023-03-02 13:35 | disposition home or self-care (01) ==
LOC: NCHCN 13:34
PROVIDERS: PCP Internal Medicine; Visit Provider Internal Medicine
DX: D64.9 Anemia, unspecified (principal); D69.59 Other secondary thrombocytopenia; I10 Essential (primary) hypertension; G20 Parkinson's disease
CPT/HCPCS: 80053; 85025

== ENCOUNTER 2023-03-29 17:52 | Outpatient (REF) | payer MEDICARE, SELFPAY ==
[2023-03-29 20:04] LABS: ALT 20 U/L (14-59); AST 31 U/L (15-37); Albumin 3.3 g/dL (3.4-5.0); Alkaline Phosphatase 113 U/L (46-116); Anion Gap 5.9 mmol/L (3-11); BUN 18 mg/dL (7-18); Bilirubin, Total 0.4 mg/dL (0.2-1.0); CO2 30.1 mmol/L (21.0-32.0); Calcium 9.9 mg/dL (8.5-10.1); Chloride 104 mmol/L (98-107); Estimated GFR 58.02 (mL/min/1.73m2); Glucose 104 mg/dL (74-106); Sodium 140 mmol/L (136-145); Total Protein 6.8 g/dL (6.4-8.2)
== END 2023-03-29 17:53 | disposition home or self-care (01) ==
LOC: NCHCN 17:52
PROVIDERS: PCP Internal Medicine; Visit Provider Internal Medicine
DX: I10 Essential (primary) hypertension (principal)
CPT/HCPCS: 80053

== ENCOUNTER 2023-04-27 15:38 | Outpatient (REF) | payer MEDICARE, SELFPAY ==
[2023-04-27 18:59] LABS: ALT 22 U/L (14-59); AST 29 U/L (15-37); Albumin 3.3 g/dL (3.4-5.0); Alkaline Phosphatase 112 U/L (46-116); Anion Gap 5.7 mmol/L (3-11); BUN 11 mg/dL (7-18); Bilirubin, Total 0.5 mg/dL (0.2-1.0); CO2 30.3 mmol/L (21.0-32.0); CREATININE 0.9 mg/dL (0.55-1.02); Calcium 9.8 mg/dL (8.5-10.1); Chloride 105 mmol/L (98-107); Estimated GFR 65.84 (mL/min/1.73m2); Glucose 87 mg/dL (74-106); Potassium 4.5 mmol/L (3.5-5.1); Sodium 141 mmol/L (136-145); Total Protein 7.2 g/dL (6.4-8.2)
== END 2023-04-27 15:39 | disposition home or self-care (01) ==
LOC: NCHCN 15:38
PROVIDERS: PCP Internal Medicine; Visit Provider Physician Assistant
DX: I10 Essential (primary) hypertension (principal)
CPT/HCPCS: 80053

== ENCOUNTER 2023-05-31 22:18 | Outpatient (REF) | payer MEDICARE, SELFPAY ==
[2023-05-31 20:06] LABS: Abs Immature Grans 0.01 10^3/uL (0.0-0.06); Absolute Basophil Count 0.06 10^3/uL (0.0-0.2); Absolute Eosinophil Count 0.31 10^3/uL (0.0-0.7); Absolute Lymphocyte Count 2.92 10^3/uL (1.2-3.4); Absolute Monocyte Count 0.57 10^3/uL (0.1-0.8); Absolute Neutrophil Count 1.73 10^3/uL (1.2-6.7); Basophils % 1.1; Eosinophils % 5.5; HCT 36.9 % (36.0-46.0); HGB 12.3 g/dL (11.2-15.7); Immature Grans % 0.2; Lymphocytes % 52.1; MCHC 33.3 % (32.0-36.0); MCV 93 fL (80-95); Monocytes % 10.2; Neutrophils % 30.9; Platelet Count 194 10^3/uL (130-400); RBC 3.97 10^6/uL (3.93-5.22); RDW 14.6 % (11.7-14.6); RDW-SD 50.1 fL
[2023-05-31 20:20] LABS: ALT 20 U/L (14-59); AST 34 U/L (15-37); Albumin 3.2 g/dL (3.4-5.0); Alkaline Phosphatase 106 U/L (46-116); Anion Gap 3.1 mmol/L (3-11); BUN 12 mg/dL (7-18); Bilirubin, Total 0.4 mg/dL (0.2-1.0); CO2 29.9 mmol/L (21.0-32.0); CREATININE 0.9 mg/dL (0.55-1.02); Calcium 9.4 mg/dL (8.5-10.1); Chloride 107 mmol/L (98-107); Estimated GFR 65.84 (mL/min/1.73m2); Glucose 97 mg/dL (74-106); Potassium 4.2 mmol/L (3.5-5.1); Sodium 140 mmol/L (136-145); Total Protein 7.2 g/dL (6.4-8.2)
== END 2023-05-31 22:19 | disposition home or self-care (01) ==
LOC: NCHCN 22:18
PROVIDERS: PCP Internal Medicine; Visit Provider Internal Medicine
DX: D69.6 Thrombocytopenia, unspecified (principal); I10 Essential (primary) hypertension
CPT/HCPCS: 80053; 85025

== ENCOUNTER 2023-06-28 19:18 | Outpatient (REF) | payer MEDICARE, SELFPAY ==
[2023-06-28 20:36] LABS: ALT 21 U/L (14-59); AST 36 U/L (15-37); Albumin 3.4 g/dL (3.4-5.0); Alkaline Phosphatase 110 U/L (46-116); Anion Gap 5.9 mmol/L (3-11); BUN 19 mg/dL (7-18); Bilirubin, Total 0.3 mg/dL (0.2-1.0); CO2 30.1 mmol/L (21.0-32.0); CREATININE 0.9 mg/dL (0.55-1.02); Calcium 9.7 mg/dL (8.5-10.1); Chloride 107 mmol/L (98-107); Estimated GFR 65.84 (mL/min/1.73m2); Glucose 75 mg/dL (74-106); Potassium 4.5 mmol/L (3.5-5.1); Sodium 143 mmol/L (136-145); Total Protein 7.3 g/dL (6.4-8.2)
== END 2023-06-28 19:19 | disposition home or self-care (01) ==
LOC: NCHCN 19:18
PROVIDERS: PCP Internal Medicine; Visit Provider Internal Medicine
DX: I10 Essential (primary) hypertension (principal)
CPT/HCPCS: 80053

== ENCOUNTER 2023-07-06 18:44 | Outpatient (REF) | payer MEDICARE, SELFPAY ==
[2023-07-06 18:52] LABS: HCT 37.7 % (36.0-46.0); HGB 12.5 g/dL (11.2-15.7); MCH 31.1 pg (27.0-33.0); MCHC 33.2 % (32.0-36.0); MCV 94 fL (80-95); Platelet Count 213 10^3/uL (130-400); RBC 4.02 10^6/uL (3.93-5.22); RDW 14.5 % (11.7-14.6); RDW-SD 50.2 fL; WBC 5.41 10^3/uL (4.4-10.8)
== END 2023-07-06 18:45 | disposition home or self-care (01) ==
LOC: LBN 18:44
PROVIDERS: PCP Internal Medicine; Visit Provider Internal Medicine
DX: D69.3 Immune thrombocytopenic purpura (principal)
CPT/HCPCS: 85027

== ENCOUNTER 2023-08-16 16:15 | Outpatient (REF) | payer MEDICARE, SELFPAY ==
[2023-08-16 19:28] LABS: HCT 38.6 % (36.0-46.0); HGB 12.9 g/dL (11.2-15.7); MCH 31.6 pg (27.0-33.0); MCHC 33.4 % (32.0-36.0); MCV 95 fL (80-95); Platelet Count 232 10^3/uL (130-400); RBC 4.08 10^6/uL (3.93-5.22); RDW 13.4 % (11.7-14.6); RDW-SD 46.8 fL; WBC 6.58 10^3/uL (4.4-10.8)
[2023-08-16 19:39] LABS: ALT 23 U/L (14-59); AST 32 U/L (15-37); Albumin 3.4 g/dL (3.4-5.0); Alkaline Phosphatase 95 U/L (46-116); Anion Gap 6.5 mmol/L (3-11); BUN 16 mg/dL (7-18); Bilirubin, Total 0.4 mg/dL (0.2-1.0); CO2 29.5 mmol/L (21.0-32.0); CREATININE 0.9 mg/dL (0.55-1.02); Calcium 9.3 mg/dL (8.5-10.1); Chloride 106 mmol/L (98-107); Estimated GFR 65.84 (mL/min/1.73m2); Glucose 81 mg/dL (74-106); Potassium 4.2 mmol/L (3.5-5.1); Sodium 142 mmol/L (136-145); Total Protein 7.4 g/dL (6.4-8.2)
== END 2023-08-16 16:16 | disposition home or self-care (01) ==
LOC: NCHCN 16:15
PROVIDERS: PCP Internal Medicine; Visit Provider Internal Medicine
DX: M19.91 Primary osteoarthritis, unspecified site (principal); D69.3 Immune thrombocytopenic purpura; I10 Essential (primary) hypertension
CPT/HCPCS: 80053; 85027

== ENCOUNTER 2023-09-03 20:32 | Outpatient (REF) | payer MEDICARE, SELFPAY ==
[2023-09-03 18:58] LABS: Bilirubin Negative (Negative); Blood Negative (Negative); Clarity Turbid (Clear); Glucose Negative (Negative); Ketones Negative (Negative); Leukocyte Esterase Small (Negative); Nitrite Negative (Negative); Urobilinogen 0.2 mg/dL (Up to 0.2)
[2023-09-03 19:02] LABS: Bacteria Few HPF (Negative); Epithelial Cells Few HPF (Negative); RBC Negative HPF (0-2)
[2023-09-03 19:03] LABS: C & S Indicated? Yes; Casts Negative LPF (Negative); Crystals Negative HPF (Negative); Mucus Negative (Negative)
== END 2023-09-03 20:33 | disposition home or self-care (01) ==
LOC: NCHCN 20:32
PROVIDERS: PCP Internal Medicine; Visit Provider Internal Medicine
DX: R10.9 Unspecified abdominal pain (principal)
CPT/HCPCS: 87077; 81003; 81015; 87086

== ENCOUNTER 2023-09-27 19:30 | Outpatient (REF) | payer MEDICARE, SELFPAY ==
[2023-09-27 20:02] LABS: ALT 22 U/L (14-59); AST 31 U/L (15-37); Abs Immature Grans 0.01 10^3/uL (0.0-0.06); Absolute Basophil Count 0.04 10^3/uL (0.0-0.2); Absolute Eosinophil Count 0.11 10^3/uL (0.0-0.7); Absolute Lymphocyte Count 2.63 10^3/uL (1.2-3.4); Absolute Monocyte Count 0.78 10^3/uL (0.1-0.8); Absolute Neutrophil Count 1.76 10^3/uL (1.2-6.7); Albumin 3.4 g/dL (3.4-5.0); Alkaline Phosphatase 122 U/L (46-116); Anion Gap 6.2 mmol/L (3-11); BUN 15 mg/dL (7-18); Basophils % 0.8; Bilirubin, Total 0.4 mg/dL (0.2-1.0); CO2 29.8 mmol/L (21.0-32.0); Calcium 9.1 mg/dL (8.5-10.1); Chloride 107 mmol/L (98-107); Eosinophils % 2.1; Estimated GFR 58.02 (mL/min/1.73m2); Glucose 86 mg/dL (74-106); HCT 39.6 % (36.0-46.0); HGB 12.9 g/dL (11.2-15.7); Immature Grans % 0.2; Lymphocytes % 49.3; MCH 31.4 pg (27.0-33.0); MCHC 32.6 % (32.0-36.0); MCV 96 fL (80-95); Monocytes % 14.6; Platelet Count 254 10^3/uL (130-400); Potassium 4.1 mmol/L (3.5-5.1); RBC 4.11 10^6/uL (3.93-5.22); RDW 13.9 % (11.7-14.6); RDW-SD 49.1 fL; Sodium 143 mmol/L (136-145); Total Protein 7.7 g/dL (6.4-8.2); WBC 5.33 10^3/uL (4.4-10.8)
== END 2023-09-27 19:31 | disposition home or self-care (01) ==
LOC: NCHCN 19:30
PROVIDERS: PCP Internal Medicine; Visit Provider Internal Medicine
DX: G20.C Parkinsonism, unspecified (principal)
CPT/HCPCS: 80053; 85025

== ENCOUNTER 2023-10-14 18:40 | Outpatient (REF) | payer MEDICARE, SELFPAY ==
[2023-10-14 18:51] LABS: HCT 38.5 % (36.0-46.0); HGB 12.7 g/dL (11.2-15.7); MCH 31.3 pg (27.0-33.0); MCV 95 fL (80-95); Platelet Count 160 10^3/uL (130-400); RBC 4.06 10^6/uL (3.93-5.22); RDW 14.1 % (11.7-14.6); RDW-SD 49.1 fL; WBC 6.73 10^3/uL (4.4-10.8)
== END 2023-10-14 18:41 | disposition home or self-care (01) ==
LOC: NCHCN 18:40
PROVIDERS: PCP Internal Medicine; Visit Provider Internal Medicine
DX: D69.6 Thrombocytopenia, unspecified
CPT/HCPCS: 85027

== ENCOUNTER 2023-10-21 14:36 | Outpatient (REF) | payer MEDICARE, SELFPAY ==
[2023-10-21 18:58] LABS: Abs Immature Grans 0.01 10^3/uL (0.0-0.06); Absolute Basophil Count 0.06 10^3/uL (0.0-0.2); Absolute Eosinophil Count 0.17 10^3/uL (0.0-0.7); Absolute Lymphocyte Count 3.26 10^3/uL (1.2-3.4); Absolute Monocyte Count 0.56 10^3/uL (0.1-0.8); Absolute Neutrophil Count 1.83 10^3/uL (1.2-6.7); Eosinophils % 2.9; HCT 39.3 % (36.0-46.0); HGB 12.8 g/dL (11.2-15.7); Immature Grans % 0.2; Lymphocytes % 55.3; MCH 30.9 pg (27.0-33.0); MCHC 32.6 % (32.0-36.0); MCV 95 fL (80-95); Monocytes % 9.5; Neutrophils % 31.1; RBC 4.14 10^6/uL (3.93-5.22); RDW 14.3 % (11.7-14.6); RDW-SD 49.8 fL; WBC 5.89 10^3/uL (4.4-10.8)
[2023-10-21 19:17] LABS: Diff Comment PLT Morph Reviewed; Platelet Count 163 10^3/uL (130-400); RBC Morphology Normal
== END 2023-10-21 14:37 | disposition home or self-care (01) ==
LOC: NCHCN 14:36
PROVIDERS: PCP Internal Medicine; Visit Provider Internal Medicine
DX: D69.6 Thrombocytopenia, unspecified (principal)
CPT/HCPCS: 85025

== ENCOUNTER 2023-10-27 15:59 | Outpatient (REF) | payer MEDICARE, SELFPAY ==
[2023-10-27 20:01] LABS: Abs Immature Grans 0.02 10^3/uL (0.0-0.06); Absolute Basophil Count 0.09 10^3/uL (0.0-0.2); Absolute Eosinophil Count 0.16 10^3/uL (0.0-0.7); Absolute Lymphocyte Count 3.21 10^3/uL (1.2-3.4); Absolute Monocyte Count 0.71 10^3/uL (0.1-0.8); Absolute Neutrophil Count 2.27 10^3/uL (1.2-6.7); Basophils % 1.4; Eosinophils % 2.5; HCT 38.5 % (36.0-46.0); Immature Grans % 0.3; Lymphocytes % 49.7; MCH 31.5 pg (27.0-33.0); MCHC 33.8 % (32.0-36.0); MCV 93 fL (80-95); Neutrophils % 35.1; Platelet Count 172 10^3/uL (130-400); RBC 4.13 10^6/uL (3.93-5.22); RDW 13.9 % (11.7-14.6); RDW-SD 47.9 fL; WBC 6.46 10^3/uL (4.4-10.8)
== END 2023-10-27 16:00 | disposition home or self-care (01) ==
LOC: NCHCN 15:59
PROVIDERS: PCP Internal Medicine; Visit Provider Internal Medicine
DX: D69.6 Thrombocytopenia, unspecified (principal)
CPT/HCPCS: 85025

== ENCOUNTER 2023-11-24 13:29 | Outpatient (REF) | payer MEDICARE, SELFPAY ==
[2023-11-24 20:33] LABS: HCT 39.5 % (36.0-46.0); MCH 31.4 pg (27.0-33.0); MCHC 32.9 % (32.0-36.0); MCV 95 fL (80-95); Platelet Count 181 10^3/uL (130-400); RBC 4.14 10^6/uL (3.93-5.22); RDW 14.3 % (11.7-14.6); RDW-SD 50.4 fL; WBC 6.17 10^3/uL (4.4-10.8)
[2023-11-24 20:55] LABS: ALT 24 U/L (14-59); AST 37 U/L (15-37); Albumin 3.4 g/dL (3.4-5.0); Alkaline Phosphatase 108 U/L (46-116); Anion Gap 4.8 mmol/L (3-11); BUN 22 mg/dL (7-18); Bilirubin, Total 0.5 mg/dL (0.2-1.0); CO2 31.2 mmol/L (21.0-32.0); Calcium 9.7 mg/dL (8.5-10.1); Chloride 107 mmol/L (98-107); Estimated GFR 58.02 (mL/min/1.73m2); Glucose 91 mg/dL (74-106); Potassium 4.7 mmol/L (3.5-5.1); Sodium 143 mmol/L (136-145)
== END 2023-11-24 13:30 | disposition home or self-care (01) ==
LOC: NCHCN 13:29
PROVIDERS: PCP Internal Medicine; Visit Provider Internal Medicine
DX: D69.3 Immune thrombocytopenic purpura (principal)
CPT/HCPCS: 80053; 85027

== ENCOUNTER 2023-12-21 18:38 | Outpatient (REF) | payer MEDICARE, SELFPAY ==
[2023-12-21 19:09] LABS: HCT 38.2 % (36.0-46.0); HGB 12.7 g/dL (11.2-15.7); MCH 30.8 pg (27.0-33.0); MCHC 33.2 % (32.0-36.0); MCV 93 fL (80-95); Platelet Count 176 10^3/uL (130-400); RBC 4.12 10^6/uL (3.93-5.22); RDW 14.4 % (11.7-14.6); RDW-SD 49.1 fL
== END 2023-12-21 18:39 | disposition home or self-care (01) ==
LOC: NCHCN 18:38
PROVIDERS: PCP Internal Medicine; Visit Provider Internal Medicine
DX: D69.3 Immune thrombocytopenic purpura (principal)
CPT/HCPCS: 80053; 85027

== ENCOUNTER 2023-12-27 20:44 | Outpatient (REF) | payer MEDICARE, SELFPAY ==
[2023-12-27 21:18] LABS: ALT 25 U/L (14-59); AST 37 U/L (15-37); Albumin 3.3 g/dL (3.4-5.0); Alkaline Phosphatase 108 U/L (46-116); Anion Gap 7.1 mmol/L (3-11); BUN 13 mg/dL (7-18); Bilirubin, Total 0.5 mg/dL (0.2-1.0); CO2 28.9 mmol/L (21.0-32.0); Chloride 107 mmol/L (98-107); Estimated GFR 57.66 (mL/min/1.73m2); Glucose 90 mg/dL (74-106); Potassium 4.7 mmol/L (3.5-5.1); Sodium 143 mmol/L (136-145); Total Protein 7.5 g/dL (6.4-8.2)
[2023-12-27 21:23] LABS: Calcium 9.4 mg/dL (8.5-10.1)
== END 2023-12-27 20:45 | disposition home or self-care (01) ==
LOC: NCHCN 20:44
PROVIDERS: PCP Internal Medicine; Visit Provider Internal Medicine
DX: D69.3 Immune thrombocytopenic purpura (principal)
CPT/HCPCS: 80053

== ENCOUNTER → 2024-01-18 12:50 | Outpatient (BNVA) | payer MEDICARE, SELFPAY | PROVIDERS: PCP Internal Medicine; Referring Provider Internal Medicine; Visit Provider Psychiatry & Neurology Neurology | DX: R26.9 Unspecified abnormalities of gait and mobility (principal); M48.061 Spinal stenosis, lumbar region without neurogenic claudication; G31.84 Mild cognitive impairment of uncertain or unknown etiology | CPT/HCPCS: 99205 ==

== ENCOUNTER 2024-01-31 13:31 | Outpatient (REF) | payer MEDICARE, SELFPAY ==
[2024-01-31 20:30] LABS: HCT 38.7 % (36.0-46.0); HGB 12.9 g/dL (11.2-15.7); MCH 31.2 pg (27.0-33.0); MCHC 33.3 % (32.0-36.0); MCV 94 fL (80-95); Platelet Count 180 10^3/uL (130-400); RBC 4.14 10^6/uL (3.93-5.22); RDW 14.7 % (11.7-14.6); RDW-SD 50.7 fL; WBC 7.36 10^3/uL (4.4-10.8)
== END 2024-01-31 13:32 | disposition home or self-care (01) ==
LOC: NCHCN 13:31
PROVIDERS: PCP Internal Medicine; Visit Provider Internal Medicine
DX: E03.9 Hypothyroidism, unspecified (principal); D69.3 Immune thrombocytopenic purpura
CPT/HCPCS: 85027; 84443

== ENCOUNTER 2024-03-07 17:53 | Outpatient (REF) | payer MEDICARE, SELFPAY ==
[2024-03-07 18:44] LABS: Bilirubin Negative (Negative); Blood Small (Negative); Clarity Cloudy (Clear); Glucose Negative (Negative); Ketones Negative (Negative); Leukocyte Esterase Moderate (Negative); Nitrite Positive (Negative); Specific Gravity 1.025 (1.005-1.025); Urobilinogen 0.2 mg/dL (Up to 0.2); pH 6.5 (5-8)
[2024-03-07 18:50] LABS: C & S Indicated? Yes; WBC >50 HPF (0-5)
== END 2024-03-07 17:54 | disposition home or self-care (01) ==
LOC: NCHCN 17:53
PROVIDERS: PCP Internal Medicine; Visit Provider Nurse Practitioner Family
DX: R30.0 Dysuria (principal); B96.29 Other Escherichia coli [E. coli] as the cause of diseases classified elsewhere; R82.89 Other abnormal findings on cytological and histological examination of urine
CPT/HCPCS: 87077; 81003; 81015; 87086; 87186

== ENCOUNTER 2024-03-14 15:34 | Outpatient (REF) | payer MEDICARE, SELFPAY ==
[2024-03-14 19:43] LABS: HCT 39.8 % (36.0-46.0); HGB 13.1 g/dL (11.2-15.7); MCHC 32.9 % (32.0-36.0); MCV 94 fL (80-95); Platelet Count 179 10^3/uL (130-400); RBC 4.22 10^6/uL (3.93-5.22); RDW 15.1 % (11.7-14.6); RDW-SD 52.2 fL; WBC 5.17 10^3/uL (4.4-10.8)
[2024-03-14 20:02] LABS: ALT 21 U/L (14-59); AST 31 U/L (15-37); Albumin 3.7 g/dL (3.4-5.0); Alkaline Phosphatase 109 U/L (46-116); BUN 21 mg/dL (7-18); Bilirubin, Total 0.26 mg/dL (0.2-1.0); CREATININE 1.3 mg/dL (0.55-1.02); Calcium 9.7 mg/dL (8.5-10.1); Chloride 106 mmol/L (98-107); Estimated GFR 42.09 (mL/min/1.73m2); Glucose 147 mg/dL (74-106); Potassium 4.4 mmol/L (3.5-5.1); Sodium 139 mmol/L (136-145); TSH (W/Ref FT4) 0.43 uIU/mL (0.36-3.74); Total Protein 8.1 g/dL (6.4-8.2)
[2024-03-15 00:02] LABS: FREE T4 0.94 ng/dL (0.76-1.46)
== END 2024-03-14 15:35 | disposition home or self-care (01) ==
LOC: NCHCN 15:34
PROVIDERS: PCP Internal Medicine; Visit Provider Internal Medicine
DX: D69.3 Immune thrombocytopenic purpura (principal); E03.9 Hypothyroidism, unspecified
CPT/HCPCS: 80053; 85027; 84439; 84443

== ENCOUNTER 2024-06-12 14:57 | Outpatient (REF) | payer MEDICARE, SELFPAY ==
[2024-06-12 19:49] LABS: Abs Immature Grans 0.01 10^3/uL (0.0-0.06); Absolute Basophil Count 0.06 10^3/uL (0.0-0.2); Absolute Lymphocyte Count 4.39 10^3/uL (1.2-3.4); Absolute Monocyte Count 0.86 10^3/uL (0.1-0.8); Absolute Neutrophil Count 2.91 10^3/uL (1.2-6.7); Basophils % 0.7 %; Eosinophils % 2.4 %; HCT 39.1 % (36.0-46.0); Immature Grans % 0.1 %; Lymphocytes % 52.1 %; MCH 31.8 pg (27.0-33.0); MCHC 33.2 % (32.0-36.0); MCV 96 fL (80-95); Monocytes % 10.2 %; Neutrophils % 34.5 %; Platelet Count 154 10^3/uL (130-400); RBC 4.09 10^6/uL (3.93-5.22); RDW 13.9 % (11.7-14.6); WBC 8.43 10^3/uL (4.4-10.8)
== END 2024-06-12 14:58 | disposition home or self-care (01) ==
LOC: LBN 14:57
PROVIDERS: PCP Internal Medicine; Visit Provider Internal Medicine Hematology & Oncology
DX: D69.3 Immune thrombocytopenic purpura (principal)
CPT/HCPCS: 85025

== ENCOUNTER 2024-07-18 10:25 | Outpatient (CLI) | payer MEDICARE, SELFPAY ==
--- NOTE | 2024-07-18 06:00 | DI.RAD_ITS ---
Exam(s) XR PAIN CLINIC LUMBAR SP 2V EXAM: XR PAIN CLINIC LUMBAR SP 2V CLINICAL HISTORY: Dx: Lumbar Spondylosis TECHNIQUE: 2D and realtime digital imaging was performed. CONTRAST MATERIAL: Refer to procedure report. COMPARISON: No exams were available for comparison FINDINGS: Fluoroscopy was provided for Dr. Velez during the performance of a lumbar medial branch blocks. P lease refer to the procedure report for complete details. Ka,r=3.56 mGy IMPRESSION: RADIATION DOSE DELIVERED: 0.0 0.0 0
[2024-07-18 10:34] VITALS: BP 164/93; PULSE 66; RESP 18; TEMP 36.2; O2SAT 100
--- NOTE | 2024-07-18 10:52 | PDOC.PAIN ---
Date of service: 07/18/24 Time of Service: 11:32 Pain Managment Procedure Note Procedure Note Procedure Note: Lumbar Medial Branch Block ? Location: Bilateral Medial Branches ? Levels: L3,4,5? (L4-5, L5-S1 FACET) ? Pre-procedure Diagnosis: M47.817 Spondylosis without myelopathy or radiculopathy, lumbosacral region M47.816 Spondylosis without myelopathy or radiculopathy, lumbar region ? Post-procedure Diagnosis:? The same as above ? Sedation: NONE? Estimated blood loss:? less than 2 cc ? Surgeon:? Andrew Velez MD COMMENT: PRE PROCEDURE PAIN SCORE: 5/10 ? Procedure Detail:? The procedure and potential risks were explained to the patient and informed written consent was obtained. The patient was escorted to the procedure room and placed in the prone position. Pillows were utilized for proper positioning and comfort.? Time out was performed in procedure room with nursing staff confirming the patient's identity, procedure to be performed, allergies, and any blood thinning or anti-platelet medications. The patient's lower back was prepped with chlorhexidine and draped in a sterile fashion. Sterile technique was maintained throughout the procedure.? Sterile gloves were used, a face mask was worn, and new single dose vials of all medications were used with the top being swabbed with alcohol and given time to dry prior to withdrawal of medication.? A left AND right-sided oblique fluoroscopic view was obtained, with visualization of the: ?RIGHT and LEFT L3,4 and DORSAL RAMUS L5 AT SACRAL ALA ? junction of the transverse process and superior articular process. Lidocaine 1% was used to anesthetize the skin. A 22-gauge Quincke needle was advanced along the superior margin of the transverse process and lateral to the articular process.? It was directed inferiorly and medially so that the tip struck the junction of the base of the transverse process and the superior articular process. The needle was then walked over the superior aspect of the transverse process and advanced slightly along the course of the L3,4,5 medial branch nerves. Proper placement was verified in A/P, oblique and lateral views under fluoroscopy. At this location, following negative aspiration, 0.5cc 0.5% bupivacaine was injected.? The patient tolerated the procedure well and was transported to the recovery area for observation and discharge instructions. Permanent images saved and recorded. Follow-up:? The patient will return in 2 weeks for confirmatory LMBBs if they? meet the criteria from today's procedure lasting for at least 2 hours.? COMMENT:Pain went from 5/10 to 2/10. Before the patient left patient had greater than 60% pain relief. Consider referral to spine surgeon with severe spinal stenosis and neurogenic claudication. Patient's blood pressure is not elevated and she will follow-up with her PCP and monitor her blood pressure.
[2024-07-18 11:05] VITALS: O2SAT 96
[2024-07-18 11:10] VITALS: PULSE 72; RESP 11
[2024-07-18] MEDS: Nerve Block Tray 1 EACH MC (11:36)
[2024-07-18] MEDS: Bupivacaine 0.5% Pres-Free 10 ML VIAL IJ (11:36)
== END 2024-07-18 10:26 | disposition home or self-care (01) ==
LOC: PC 10:25
PROVIDERS: PCP Internal Medicine; Visit Provider Anesthesiology Pain Medicine
DX: M54.50 Low back pain, unspecified (principal); M47.817 Spondylosis without myelopathy or radiculopathy, lumbosacral region; M47.816 Spondylosis without myelopathy or radiculopathy, lumbar region
CPT/HCPCS: 00123; 64493; 64494; 72100; J0665

== ENCOUNTER 2024-08-08 09:55 | Outpatient (CLI) | payer MEDICARE, SELFPAY ==
--- NOTE | 2024-08-08 06:00 | DI.RAD_ITS ---
Exam(s) XR PAIN CLINIC LUMBAR SP 2V EXAM: XR PAIN CLINIC LUMBAR SP 2V CLINICAL HISTORY: DX: Lumbar Radiculopathy TECHNIQUE: 2D and realtime digital imaging was performed. CONTRAST MATERIAL: Refer to procedure report. COMPARISON: No exams were available for comparison FINDINGS: Fluoroscopy was provided for Dr. Velez during the performance of a lumbar epidural steroid injecti on. Please refer to the procedure report for complete details. Ka,r=5.67 mGy IMPRESSION: RADIATION DOSE DELIVERED: 0.0 0.0 0
[2024-08-08 10:04] VITALS: BP 119/61; PULSE 61; RESP 20; TEMP 36.7; O2SAT 97
--- NOTE | 2024-08-08 10:41 | PDOC.PAIN ---
Date of service: 08/08/24 Time of Service: 11:09 Pain Managment Procedure Note Procedure Note Procedure Note: Lumbar Interlaminar Epidural Steroid Injection ? Location: L5-S1 ? Pre-procedure Diagnosis: M54.16- Radiculopathy, LUMBAR region ? Post-procedure Diagnosis:? The same as above ? Sedation:? ? None ? Medication: Depo-Medrol 80 mg, Omnipaque 1 mL ? Estimated blood loss:? less than 2 cc ? Surgeon:? Andrew Velez MD COMMENT: Patient has severe spinal stenosis at L4-5. She had back pain and leg pain. She had medial branch blocks at L3, 4, 5 without relief. ? Procedure Detail:? The procedure and potential risks were explained to the patient and informed written consent was obtained. The patient was escorted to the procedure room and placed in the prone position. Pillows were utilized for proper positioning and comfort. Time out was performed in the procedure room with nursing staff confirming the patient's identity, procedure to be performed, allergies, and any blood thinning or anti-platelet medications.? The patient's neck and upper back was prepped with ChloraPrep and draped in a sterile fashion. Sterile technique was maintained throughout the procedure.? Sterile gloves were used, a face mask was worn, and new single dose vials of all medications were used with the top being swabbed with alcohol and given time to dry prior to withdrawal of medication. Lidocane 1% was used to anesthetize the skin.Using a 25-gauge 1.5 inch needle, 1% lidocaine was instilled into the superficial soft tissue overlying the targeted area to provide local anesthesia. With fluoroscopic guidance, a 17 -gauge Tuohy needle was advanced toward the interlaminar space of L5-S1. The needle was then advance through the ligamentum flavum and into the posterior epidural space using the loss of resistance technique. Correct needle placement was confirmed through review of the AP and contralateral oblique fluoroscopic views. A 19-gauge arrow catheter was threaded cephalad to the Right [Left] Following negative aspiration, one cc of Omnipaque 240 contrast was injected which confirmed good flow throughout the epidural space and no evidence of vascular flow or flow into adjacent compartments. Next, following negative aspiration, 1 cc's of normal saline and 80mg of Depo-Medrol was injected. The needle was gently removed. The patient tolerated the procedure well and was transported to the recovery area for observation and discharge instructions. Permanent images saved and recorded. PAIN PRE-PROCEDURE 10/19 POST-PROCEDURE 0 Plan:? Follow up prn. COMMENT: Consider L2-3 epidural steroid injection for the stenosis at L1-2. Consider surgical evaluation.
[2024-08-08 10:53] VITALS: PULSE 66; O2SAT 98
[2024-08-08 11:00] VITALS: PULSE 59; O2SAT 100
[2024-08-08] MEDS: Omnipaque 240 MG/ML 50 ML BTL IJ (11:09)
[2024-08-08] MEDS: Epidural Tray 1 EACH MC (11:09)
[2024-08-08] MEDS: methylPREDNISolone ACETATE 40 MG/ML VIAL IJ (11:10)
== END 2024-08-08 09:56 | disposition home or self-care (01) ==
LOC: PC 09:55
PROVIDERS: PCP Internal Medicine; Visit Provider Anesthesiology Pain Medicine
DX: M54.50 Low back pain, unspecified (principal); M54.16 Radiculopathy, lumbar region
CPT/HCPCS: 00123; 62323; 72100; J1010; Q9967

== ENCOUNTER 2024-09-04 13:32 | Outpatient (REF) | payer MEDICARE, SELFPAY ==
[2024-09-04 18:45] LABS: Anion Gap 8.5 mmol/L (3-11); BUN 32 mg/dL (7-18); CO2 28.5 mmol/L (21.0-32.0); CREATININE 1.4 mg/dL (0.55-1.02); Chloride 106 mmol/L (98-107); Estimated GFR 38.51 (mL/min/1.73m2); Glucose 95 mg/dL (74-106); Sodium 143 mmol/L (136-145)
[2024-09-04 18:49] LABS: HCT 39.3 % (36.0-46.0); MCH 30.7 pg (27.0-33.0); MCHC 33.1 % (32.0-36.0); MCV 93 fL (80-95); Platelet Count 177 10^3/uL (130-400); RBC 4.23 10^6/uL (3.93-5.22); RDW 13.5 % (11.7-14.6); RDW-SD 45.9 fL; WBC 5.95 10^3/uL (4.4-10.8)
== END 2024-09-04 13:33 | disposition home or self-care (01) ==
LOC: NCHCN 13:32
PROVIDERS: PCP Internal Medicine; Visit Provider Internal Medicine
DX: I10 Essential (primary) hypertension (principal); D69.3 Immune thrombocytopenic purpura
CPT/HCPCS: 80048; 85027

== ENCOUNTER 2024-09-19 13:39 | Outpatient (REF) | payer MEDICARE, SELFPAY ==
[2024-09-19 19:04] LABS: HCT 35.7 % (36.0-46.0); MCH 31.3 pg (27.0-33.0); MCHC 33.6 % (32.0-36.0); MCV 93 fL (80-95); RBC 3.83 10^6/uL (3.93-5.22); RDW 13.8 % (11.7-14.6); RDW-SD 46.9 fL
[2024-09-19 19:26] LABS: Absolute Basophil Count 0.08 10^3/uL (0.0-0.2); Absolute Eosinophil Count 0.17 10^3/uL (0.0-0.7); Absolute Monocyte Count 0.66 10^3/uL (0.1-0.8); Absolute Neutrophil Count 3.74 10^3/uL (1.2-6.7); Bands % 2 %
[2024-09-19 19:27] LABS: Absolute Lymphocyte Count 3.65 10^3/uL (1.2-3.4); Atypical Lymphocytes % 2 %; Diff Comment Manual Differential; RBC Morphology Normal
== END 2024-09-19 13:40 | disposition home or self-care (01) ==
LOC: NCHCN 13:39
PROVIDERS: PCP Internal Medicine; Visit Provider Internal Medicine
DX: D69.3 Immune thrombocytopenic purpura (principal)
CPT/HCPCS: 85025

== ENCOUNTER 2024-09-20 12:25 | Outpatient (CLI) | payer MEDICARE, SELFPAY ==
[2024-09-20 12:45] VITALS: BP 150/83; PULSE 55; RESP 18; TEMP 36.2; O2SAT 100
--- NOTE | 2024-09-20 12:51 | PDOC.PAIN_ITS ---
Date of service: 09/20/24 Time of Service: 13:40 Pain Managment Procedure Note Procedure Note Procedure Note: Lumbar Interlaminar Epidural Steroid Injection ? Location: L2-3 ? Pre-procedure Diagnosis: M54.16- Radiculopathy, LUMBAR region ? Post-procedure Diagnosis:? The same as above ? Sedation:? ? None ? Medication: Depo-Medrol 80 mg, Omnipaque 1 mL ? Estimated blood loss:? less than 2 cc ? Surgeon:? Andrew Velez MD COMMENT: ? Procedure Detail:? The procedure and potential risks were explained to the patient and informed written consent was obtained. The patient was escorted to the procedure room and placed in the prone position. Pillows were utilized for proper positioning and comfort. Time out was performed in the procedure room with nursing staff confirming the patient's identity, procedure to be performed, allergies, and any blood thinning or anti-platelet medications.? The patient's neck and upper back was prepped with ChloraPrep and draped in a sterile fashion. Sterile technique was maintained throughout the procedure.? Sterile gloves were used, a face mask was worn, and new single dose vials of all medications were used with the top being swabbed with alcohol and given time to dry prior to withdrawal of medication. Lidocane 1% was used to anesthetize the skin.Using a 25-gauge 1.5 inch needle, 1% lidocaine was instilled into the superficial soft tissue overlying the targeted area to provide local anesthesia. With fluoroscopic guidance, a 17 -gauge Tuohy needle was advanced toward the interlaminar space of L2-3. The needle was then advance through the ligamentum flavum and into the posterior epidural space using the loss of resistance technique. Correct needle placement was confirmed through review of the AP and contralateral oblique fluoroscopic views. Catheter was not able to be thread Following negative aspiration, one cc of Omnipaque 240 contrast was injected which confirmed good flow throughout the epidural space and no evidence of vascular flow or flow into adjacent compartments. Next, following negative aspiration, 1 cc's of normal saline and 80mg of Depo-Medrol was injected. The needle was gently removed. The patient tolerated the procedure well and was transported to the recovery area for observation and discharge instructions. Permanent images saved and recorded. PAIN PRE-PROCEDURE 8/10 POST-PROCEDURE 0/10 Plan:? Follow up prn. COMMENT: Patient will follow-up as needed. The only repeat if she gets long- term relief. Difficult access to the interspace at L2-3. Patient pending surgical evaluation next week at . Coding Conscious Sedation used for procedure: No CPT Codes: Inj Spine L/S w/Imaging - [id number] ([id number] ~G) Additional Codes: Date of Service ([id number]) Date of service: 09/20/24
[2024-09-20 13:13] VITALS: PULSE 67; O2SAT 99
[2024-09-20 13:20] VITALS: PULSE 65; O2SAT 98
[2024-09-20 13:34] VITALS: PULSE 69; O2SAT 98
--- NOTE | 2024-09-20 13:38 | DI.RAD_ITS ---
Exam(s) XR PAIN CLINIC LUMBAR SP 2V EXAM: XR PAIN CLINIC LUMBAR SP 2V CLINICAL HISTORY: DX: Lumbar Radiculopathy TECHNIQUE: 2D and realtime digital imaging was performed. CONTRAST MATERIAL: Refer to procedure report. COMPARISON: No exams were available for comparison FINDINGS: Fluoroscopy was provided for Dr. Velez during the performance of a lumbar epidural steroid injecti on. Please refer to the procedure report for complete details. Ka,r=11.02 mGy IMPRESSION: RADIATION DOSE DELIVERED: 0.0 0.0 0
[2024-09-20] MEDS: methylPREDNISolone ACETATE 40 MG/ML VIAL IJ (13:40)
[2024-09-20] MEDS: Omnipaque 240 MG/ML 50 ML BTL IJ (13:40)
[2024-09-20] MEDS: Epidural Tray 1 EACH MC (13:40)
== END 2024-09-20 12:26 | disposition home or self-care (01) ==
LOC: PC 12:26
PROVIDERS: PCP Internal Medicine; Visit Provider Anesthesiology Pain Medicine
DX: M54.50 Low back pain, unspecified (principal); M54.16 Radiculopathy, lumbar region
CPT/HCPCS: 62323; 72100; J1010; Q9967

== ENCOUNTER 2024-10-27 21:39 | Outpatient (REF) | payer MEDICARE, SELFPAY ==
[2024-10-27 19:18] LABS: TSH (W/Ref FT4) 0.89 uIU/mL (0.36-3.74)
== END 2024-10-27 21:40 | disposition home or self-care (01) ==
LOC: NCHCN 21:39
PROVIDERS: PCP Internal Medicine; Visit Provider Physician Assistant
DX: E03.9 Hypothyroidism, unspecified (principal)
CPT/HCPCS: 84443

== ENCOUNTER 2024-11-24 00:16 | Outpatient (CLI) | payer MEDICARE, SELFPAY ==
--- NOTE | 2024-11-24 | DI.DEXA_ITS ---
Exam(s) XR DEXA BONE DENSITY W/WO SAMIA EXAM: XR DEXA BONE DENSITY W/WO SAMIA CLINICAL HISTORY: COMP FX L2,S32.020S,OSTEOPOROSIS WITH FX,M80.08XA TECHNIQUE: COMPARISON: MR MR LS SPINE WO CONTRAST from 03/27/2020 FINDINGS: Lateral Spine Image: There are old T12 and L2 compression fracture deformities which are stable. The re is also stable spondylolisthesis of L4 on L5. Left hip: Total T-Score: -2.6 Total Z-Score: -0.6 T- and Z-scores: Findings are consistent with osteoporosis. Lumbar Spine: Total T-Score: -1.8 Total Z-Score: 0.8 T- and Z-scores: Findings are consistent with osteopenia. IMPRESSION: 1. Osteoporosis in the left hip. 2. Stable T12 and L2 compression fracture deformities.
== END 2024-11-24 00:36 ==
LOC: DI 00:16
PROVIDERS: PCP Internal Medicine; Visit Provider Neurological Surgery
DX: S32.020S Wedge compression fracture of second lumbar vertebra, sequela (principal); X58.XXXS Exposure to other specified factors, sequela; M80.08XS Age-related osteoporosis with current pathological fracture, vertebra(e), sequela
CPT/HCPCS: 77080

== ENCOUNTER 2024-12-19 14:57 | Outpatient (REF) | payer MEDICARE, SELFPAY ==
[2024-12-19 21:37] LABS: Abs Immature Grans 0.01 10^3/uL (0.0-0.06); Absolute Basophil Count 0.07 10^3/uL (0.0-0.2); Absolute Eosinophil Count 0.27 10^3/uL (0.0-0.7); Absolute Lymphocyte Count 3.41 10^3/uL (1.2-3.4); Absolute Monocyte Count 0.88 10^3/uL (0.1-0.8); Absolute Neutrophil Count 2.65 10^3/uL (1.2-6.7); Eosinophils % 3.7 %; HGB 12.2 g/dL (11.2-15.7); Immature Grans % 0.1 %; Lymphocytes % 46.8 %; MCH 30.9 pg (27.0-33.0); MCV 94 fL (80-95); Monocytes % 12.1 %; Neutrophils % 36.3 %; Platelet Count 179 10^3/uL (130-400); RBC 3.95 10^6/uL (3.93-5.22); RDW 13.3 % (11.7-14.6); WBC 7.29 10^3/uL (4.4-10.8)
[2024-12-19 21:59] LABS: TSH 9.28 uIU/mL (0.36-3.74)
== END 2024-12-19 14:58 | disposition home or self-care (01) ==
LOC: NCHCN 14:57
PROVIDERS: PCP Internal Medicine; Visit Provider Internal Medicine
DX: E03.9 Hypothyroidism, unspecified (principal); D64.9 Anemia, unspecified
CPT/HCPCS: 84443; 85025

== ENCOUNTER 2025-03-20 15:16 | Outpatient (REF) | payer MEDICARE, SELFPAY ==
[2025-03-20 19:12] LABS: Abs Immature Grans 0.01 10^3/uL (0.0-0.06); HCT 35.1 % (36.0-46.0); HGB 11.9 g/dL (11.2-15.7); Immature Grans % 0.2 %; MCH 31.2 pg (27.0-33.0); MCHC 33.9 % (32.0-36.0); MCV 92 fL (80-95); RBC 3.82 10^6/uL (3.93-5.22); RDW 13.9 % (11.7-14.6); RDW-SD 46.8 fL; WBC 6.64 10^3/uL (4.4-10.8)
[2025-03-20 19:30] LABS: Platelet Count 167 10^3/uL (130-400); RBC Morphology Normal
== END 2025-03-20 15:17 | disposition home or self-care (01) ==
LOC: NCHCN 15:16
PROVIDERS: PCP Internal Medicine; Visit Provider Internal Medicine
DX: D64.9 Anemia, unspecified (principal)
CPT/HCPCS: 85025

== ENCOUNTER 2025-04-18 01:05 | Outpatient (CLI) | payer MEDICARE, SELFPAY ==
[2025-04-18 12:24] LABS: Abs Immature Grans 0.01 10^3/uL (0.0-0.06); HCT 33.6 % (36.0-46.0); HGB 11.2 g/dL (11.2-15.7); Immature Grans % 0.2 %; MCH 30.5 pg (27.0-33.0); MCHC 33.3 % (32.0-36.0); MCV 92 fL (80-95); Platelet Count 157 10^3/uL (130-400); RBC 3.67 10^6/uL (3.93-5.22); RDW 14.3 % (11.7-14.6); RDW-SD 48.3 fL; WBC 6.00 10^3/uL (4.4-10.8)
[2025-04-18 12:36] LABS: RBC Morphology Normal
== END 2025-04-18 01:06 | disposition home or self-care (01) ==
LOC: LBO 01:06
PROVIDERS: PCP Internal Medicine; Visit Provider Nurse Practitioner Family
DX: D50.9 Iron deficiency anemia, unspecified (principal)
CPT/HCPCS: 36415; 85025